=== PATIENT | female | born 1995 | race African-American/Black ===

== ENCOUNTER → 2016-07-20 | Outpatient (REF) | payer OTHER | LOC: M SFHCWAGY 15:30 | PROVIDERS: ATTEND Nurse Practitioner Family | DX: Z12.4 Encounter for screening for malignant neoplasm of cervix (principal); A59.09 Other urogenital trichomoniasis ==

== ENCOUNTER → 2017-01-05 | Outpatient (REF) | payer OTHER | LOC: M SFHCWAGY 10:58 | PROVIDERS: ATTEND Family Medicine | DX: Z11.3 Encounter for screening for infections with a predominantly sexual mode of transmission (principal) ==

== ENCOUNTER 2017-06-04 02:52 | Emergency (ER) | payer OTHER ==
[~2017-06-04] VITALS: Ht 165.1 cm; Wt 88.6 kg
[2017-06-04 02:52] VITALS: BP 137/76
[2017-06-04] MEDS ORDERED: CLEO300C2 PO (03:53)
[2017-06-04] MEDS ORDERED: NORCOTAB PO (03:53)
[2017-06-04] MEDS ORDERED: NAPR500T PO (03:53)
[2017-06-04] MEDS ORDERED: NAPROXEN 250 MG TAB PO ONE (04:00)
[2017-06-04] MEDS ORDERED: CLINDAMYCIN 150 MG CAP PO ONE (04:00)
[2017-06-04] MEDS ORDERED: NORCO 5/325MG TABLET (BULK FOR ED) PO ONE (04:00)
== END 2017-06-04 04:23 | disposition home or self-care (01) ==
LOC: M ED 02:52
DX: S02.5XXA Fracture of tooth (traumatic), initial encounter for closed fracture (principal); X58.XXXA Exposure to other specified factors, initial encounter; Y92.89 Other specified places as the place of occurrence of the external cause; Y93.89 Activity, other specified; Y99.8 Other external cause status

== ENCOUNTER 2017-07-02 18:36 | Emergency (ER) | payer OTHER ==
[2017-07-02] MEDS: PENICILLIN V POTASSIUM 500 MG TAB PO (20:30)
[2017-07-02] MEDS: NAPROXEN 250 MG TAB PO (20:30)
== END 2017-07-02 20:39 | disposition home or self-care (01) ==
LOC: M ED 18:36
DX: J02.9 Acute pharyngitis, unspecified (principal); Z79.2 Long term (current) use of antibiotics; Z79.899 Other long term (current) drug therapy
CPT/HCPCS: 99282

== ENCOUNTER 2017-09-20 08:39 | Emergency (ER) | payer OTHER | END 2017-09-20 09:49 | disposition home or self-care (01) | LOC: M ED 08:39 | DX: K02.9 Dental caries, unspecified (principal); K08.89 Other specified disorders of teeth and supporting structures; Z79.899 Other long term (current) drug therapy | CPT/HCPCS: 99282 ==

== ENCOUNTER → 2017-12-06 | Outpatient (REF) | payer OTHER | LOC: M SFHCWAGY 11:32 | DX: N90.89 Other specified noninflammatory disorders of vulva and perineum (principal) ==

== ENCOUNTER → 2018-06-17 | Outpatient (REF) | payer OTHER ==
[~2018-06-17] MED LIST: AUGM875T28 PO; BLIS1TAB2; CLEO300C2 PO; ERYTOIN8 OD; IBUP-1022 PO; IBUP80TA PO; LO LTAB PO; NAPR-50 PO; NORCOTAB PO; PENI500T PO
[2018-06-17 18:27] LABS: CHLAMYDIA DNA AMPLIFICATION NEGATIVE (NEGATIVE); GC DNA AMPLIFICATION NEGATIVE (NEGATIVE)
== END ==
LOC: M SFHCWAGY 15:50
PROVIDERS: ATTEND Nurse Practitioner Family
DX: Z12.4 Encounter for screening for malignant neoplasm of cervix (principal)

== ENCOUNTER 2018-06-21 17:23 | Emergency (ER) | payer OTHER ==
[~2018-06-21] VITALS: Ht 165.1 cm; Wt 95.5 kg
[~2018-06-21 17:23] MED LIST changes: -ERYTOIN8 OD; -IBUP80TA PO; -LO LTAB PO
[2018-06-21 17:24] VITALS: BP 142/85
[2018-06-21] MEDS ORDERED: LO LTAB PO (17:30)
[2018-06-21] MEDS ORDERED: AUGM875T28 PO (17:42)
[2018-06-21] MEDS ORDERED: IBUP80TA PO (17:42)
[2018-06-21] MEDS ORDERED: ERYTOIN8 OD (17:42)
[2018-06-21] MEDS ORDERED: AUGMENTIN 875 MG TAB PO ONE (17:45)
[2018-06-21] MEDS ORDERED: ERYTHROMYCIN OPHTH OINT OD ONE (17:45)
[2018-06-21] MEDS ORDERED: IBUPROFEN 800 MG TAB PO ONE (17:45)
== END 2018-06-21 18:13 | disposition home or self-care (01) ==
LOC: M ED 17:23
DX: S05.91XA Unspecified injury of right eye and orbit, initial encounter (principal); Y99.9 Unspecified external cause status; Y92.009 Unspecified place in unspecified non-institutional (private) residence as the place of occurrence of the external cause; H57.11 Ocular pain, right eye

== ENCOUNTER 2018-07-12 15:14 | Emergency (ER) | payer OTHER ==
[~2018-07-12] VITALS: Ht 165.1 cm; Wt 95.5 kg
[~2018-07-12 15:14] MED LIST changes: +ERYTOIN8 OD; +IBUP80TA PO; +LO LTAB PO
[2018-07-12] MEDS ORDERED: VALA1TAB2 PO (17:13)
[2018-07-12 17:22] VITALS: BP 132/79
== END 2018-07-12 17:34 | disposition home or self-care (01) ==
LOC: M ED 15:14
DX: B02.9 Zoster without complications (principal)

== ENCOUNTER 2018-12-21 08:13 | Emergency (ER) | payer OTHER, SELFPAY ==
[~2018-12-21] VITALS: Ht 165.1 cm; Wt 95.5 kg
[2018-12-21 08:13] VITALS: BP 137/84
[~2018-12-21 08:13] MED LIST changes: +HYDR-3715 PO; -NAPR-50 PO; +NAPR-837 PO; -NORCOTAB PO; +VALA1TAB2 PO
[2018-12-21] MEDS ORDERED: POLYSOL OD (09:10)
== END 2018-12-21 10:34 | disposition home or self-care (01) ==
LOC: M ED 08:13
DX: H10.31 Unspecified acute conjunctivitis, right eye (principal)

== ENCOUNTER 2019-01-06 17:58 | Emergency (ER) | payer OTHER, SELFPAY ==
[~2019-01-06] VITALS: Ht 165.1 cm; Wt 95.5 kg
[~2019-01-06 17:58] MED LIST changes: +POLYSOL OD
[2019-01-06 20:01] VITALS: BP 134/89
[2019-01-06] MEDS ORDERED: AMOX500C PO (21:07)
[2019-01-06] MEDS ORDERED: AMOXICILLIN 500 MG CAP PO ONE (21:15)
[2019-01-06] MEDS ORDERED: NORCO, ANEXSIA 5/325MG TABLET (HYDROcodone/ACETAMINOPHEN) PO ONE (21:15)
== END 2019-01-06 21:21 | disposition home or self-care (01) ==
LOC: M ED 17:58
DX: K02.9 Dental caries, unspecified (principal); H92.01 Otalgia, right ear; Z79.3 Long term (current) use of hormonal contraceptives

== ENCOUNTER → 2019-10-17 | Outpatient (REF) | payer OTHER ==
[~2019-10-17] MED LIST changes: +AFRI0.058; +AMOX500C PO; +BENZ200C70 PO; -VALA1TAB2 PO; +VALA1TAB5 PO; +VALA500T5 PO; +[UNRECOGNIZED DRUG - CODE]
[2019-10-17 21:42] LABS: CHLAMYDIA DNA AMPLIFICATION NEGATIVE (NEGATIVE); GC DNA AMPLIFICATION NEGATIVE (NEGATIVE)
== END ==
LOC: M SFHCWAGY 16:45
PROVIDERS: ATTEND Nurse Practitioner Family
DX: Z12.4 Encounter for screening for malignant neoplasm of cervix (principal); Z11.3 Encounter for screening for infections with a predominantly sexual mode of transmission

== ENCOUNTER 2020-01-19 22:32 | Emergency (ER) | payer OTHER ==
[2020-01-20] MEDS ORDERED: diphenhydrAMINE 25MG CAP ONE (00:57)
[2020-01-20] MEDS ORDERED: AUGMENTIN 875 MG TAB ONE (00:57)
== END 2020-01-20 01:00 | disposition home or self-care (01) ==
LOC: M ED 22:32
DX: L03.116 Cellulitis of left lower limb (principal); Z79.3 Long term (current) use of hormonal contraceptives

== ENCOUNTER → 2020-03-01 | Outpatient (REF) | payer OTHER ==
[2020-03-01 15:00] LABS: CHLAMYDIA DNA AMPLIFICATION NEGATIVE (NEGATIVE); GC DNA AMPLIFICATION NEGATIVE (NEGATIVE)
== END ==
LOC: M SFHCWAGY 11:48
PROVIDERS: ATTEND Nurse Practitioner Women's Health
DX: Z11.3 Encounter for screening for infections with a predominantly sexual mode of transmission (principal); N72 Inflammatory disease of cervix uteri

== ENCOUNTER → 2022-07-02 | Outpatient (REF) | payer BC ==
[~2022-07-02] MED LIST changes: -AFRI0.058; +OXYM15SP2
[2022-07-02 16:40] LABS: GC DNA AMPLIFICATION NEGATIVE (NEGATIVE)
== END ==
LOC: M PLALAB 08:13
PROVIDERS: ATTEND Advanced Practice Midwife
DX: Z12.4 Encounter for screening for malignant neoplasm of cervix (principal)

== ENCOUNTER → 2023-07-23 | Outpatient (REF) | payer BC ==
[~2023-07-23] MED LIST changes: +AMOX875T PO; +IBUP200T46 PO; +JUNE1TAB
== END ==
LOC: M PLALAB 14:28
PROVIDERS: ATTEND Advanced Practice Midwife
DX: Z12.4 Encounter for screening for malignant neoplasm of cervix (principal); Z11.3 Encounter for screening for infections with a predominantly sexual mode of transmission; Z53.9 Procedure and treatment not carried out, unspecified reason

== ENCOUNTER 2023-07-29 08:53 | Emergency (ER) | payer BC ==
[~2023-07-29] VITALS: Ht 165.1 cm; Wt 100.6 kg
[~2023-07-29 08:53] MED LIST changes: -AMOX875T PO; -IBUP200T46 PO; -JUNE1TAB
[2023-07-29] MEDS ORDERED: IBUP200T46 PO (09:35)
[2023-07-29] MEDS ORDERED: JUNE1TAB (09:35)
[2023-07-29] MEDS: BENZOCAINE 20% GEL 9GM TUBE (ANBESOL MAX STRENGTH) TOP ONE (10:25)
[2023-07-29] MEDS: ACETAMINOPHEN 500 MG TAB PO ONE (10:25)
[2023-07-29] MEDS ORDERED: AMOX875T PO (11:33)
[2023-07-29 11:59] VITALS: BP 158/92
[2023-07-29 12:05] VITALS: TEMP 98.1; O2SAT 99
== END 2023-07-29 12:13 | disposition home or self-care (01) ==
LOC: M ED 08:53
DX: K02.9 Dental caries, unspecified (principal); Z79.899 Other long term (current) drug therapy; Z79.2 Long term (current) use of antibiotics; Z79.1 Long term (current) use of non-steroidal anti-inflammatories (NSAID)

== ENCOUNTER → 2023-12-17 | Outpatient (REF) | payer BC ==
[~2023-12-17] MED LIST changes: +AMOX875T PO; +IBUP200T46 PO; +JUNE1TAB
[2023-12-17 13:34] LABS: Trichomonas vaginalis (AMP) NOT DETECTED (NEGATIVE)
[2023-12-17 13:58] LABS: GC DNA AMPLIFICATION NEGATIVE (NEGATIVE)
[2023-12-17 17:31] LABS: ALBUMIN 3.3 G/DL (3.2-5.2); ALKALINE PHOSPHATASE 87 U/L (46-116); ALT/SGPT 19 U/L (7.0-40); AST/SGOT 9 U/L (<34); BILIRUBIN,TOTAL 0.2 MG/DL (0.3-1.2); BLOOD UREA NITROGEN 13 MG/DL (9-23); CARBON DIOXIDE LEVEL 27 MMOL/L (20-31); CHLORIDE LEVEL 109 MMOL/L (98-107); CHOLESTEROL LEVEL 137 MG/DL (<200); CHOLESTEROL RISK RATIO 2.47 (<5); CREATININE FOR GFR 0.82 MG/DL (0.55-1.30); GLOMERULAR FILTRATION RATE > 60.0 (>60); GLUCOSE, FASTING 84 MG/DL (60-100); HDL CHOLESTEROL 55.4 MG/DL (>40); LDL CHOLESTEROL 65.2 MG/DL (<100); NON-HDL-C 81.6 MG/DL; POTASSIUM SERUM 3.9 MMOL/L (3.5-5.1); SODIUM LEVEL 142 MMOL/L (136-145); TOTAL PROTEIN 6.8 G/DL (5.7-8.2); TRIGLYCERIDES LEVEL 82 MG/DL (<150)
[2023-12-17 17:32] LABS: TOTAL 25(OH) VITAMIN D 25.7 NG/ML (20.0-100.0)
[2023-12-17 17:33] LABS: THYROID STIMULATING HORMONE 2.166 uIU/ML (0.55-4.78)
[2023-12-17 17:51] LABS: HEMOGLOBIN A1c 5.2 % (4.0-6.0)
[2023-12-17 17:53] LABS: BASO # 0.1 10^3/uL (0.0-0.2); BASO % 0.6 % (0.0-1.0); EOS # 0.1 10^3/uL (0.0-0.5); EOS % 0.8 % (0.0-3.0); HEMATOCRIT 38.3 % (36.0-47.0); HEMOGLOBIN 12.5 g/dl (12.0-15.5); LYMPH # 1.7 10^3/uL (1.5-5.0); MEAN CORPUSCULAR HEMOGLOBIN 26.2 pg (27.0-33.0); MEAN CORPUSCULAR HGB CONC 32.6 g/dl (32.0-36.5); MEAN CORPUSCULAR VOLUME 80.3 fl (80.0-96.0); MONO # 0.5 10^3/uL (0.0-0.8); MONO % 5.8 % (2.0-8.0); NEUTROPHILS # 6.3 10^3/uL (1.5-8.5); NEUTROPHILS % 72.6 % (36.0-66.0); PLATELET COUNT, AUTOMATED 286 10^3/uL (150-450); RED BLOOD COUNT 4.77 10^6/uL (4.00-5.40); WHITE BLOOD COUNT 8.7 10^3/uL (4.0-10.0)
[2023-12-17 18:02] LABS: HIV 1&2 SCREEN NEGATIVE (NEGATIVE)
[2023-12-17 18:09] LABS: HEPATITIS C VIRUS ABY INDEX < 0.02 INDEX (<0.8)
== END ==
LOC: M LAB REF 11:58
PROVIDERS: ATTEND Nurse Practitioner Family
DX: Z11.9 Encounter for screening for infectious and parasitic diseases, unspecified (principal); E66.3 Overweight; E55.9 Vitamin D deficiency, unspecified; R53.83 Other fatigue

== ENCOUNTER 2024-01-03 23:47 | Emergency (ER) | payer BC ==
[~2024-01-03] VITALS: Ht 165.1 cm; Wt 100.5 kg
[2024-01-04] MEDS ORDERED: KETO10TAB PO (01:44)
[2024-01-04] MEDS ORDERED: AMOX500C PO (01:44)
[2024-01-04] MEDS: KETOROLAC 60MG 2ML VIAL IM ONE (01:47)
[2024-01-04] MEDS: ACETAMINOPHEN 500 MG TAB PO ONE (01:48)
[2024-01-04 01:59] VITALS: BP 120/74; TEMP 97.8; O2SAT 98
== END 2024-01-04 02:03 | disposition home or self-care (01) ==
LOC: M ED 23:47
DX: K02.9 Dental caries, unspecified (principal); F12.10 Cannabis abuse, uncomplicated; F10.10 Alcohol abuse, uncomplicated; Z79.2 Long term (current) use of antibiotics; Z79.899 Other long term (current) drug therapy
CPT/HCPCS: 96372; 99283; J1885

== ENCOUNTER → 2024-07-21 | Outpatient (CLI) | payer BC ==
[~2024-07-21] MED LIST changes: +KETO10TAB PO
== END ==
LOC: M WHC 11:18
PROVIDERS: ATTEND Advanced Practice Midwife
DX: N92.0 Excessive and frequent menstruation with regular cycle (principal); R93.5 Abnormal findings on diagnostic imaging of other abdominal regions, including retroperitoneum

== ENCOUNTER → 2024-07-27 | Outpatient (CLI) | payer BC ==
[2024-07-27 14:09] LABS: Trichomonas vaginalis (AMP) NOT DETECTED (NEGATIVE)
[2024-07-27 14:32] LABS: HEMATOCRIT 39.9 % (36.0-47.0); HEMOGLOBIN 13.4 g/dl (12.0-15.5); MEAN CORPUSCULAR HEMOGLOBIN 27.1 pg (27.0-33.0); MEAN CORPUSCULAR HGB CONC 33.6 g/dl (32.0-36.5); MEAN CORPUSCULAR VOLUME 80.8 fl (80.0-96.0); PLATELET COUNT, AUTOMATED 267 10^3/uL (150-450); RED BLOOD COUNT 4.94 10^6/uL (4.00-5.40); WHITE BLOOD COUNT 5.5 10^3/uL (4.0-10.0)
[2024-07-27 14:33] LABS: GC DNA AMPLIFICATION NEGATIVE (NEGATIVE)
[2024-07-27 15:02] LABS: FREE T4 1.16 NG/DL (0.89-1.76)
[2024-07-27 15:03] LABS: THYROID STIMULATING HORMONE 1.783 uIU/ML (0.55-4.78)
[2024-07-27 15:14] LABS: HCG, SERUM QUALITATIVE NEGATIVE (NEGATIVE)
== END ==
LOC: M PLALAB 11:34
PROVIDERS: ATTEND Advanced Practice Midwife
DX: Z01.419 Encounter for gynecological examination (general) (routine) without abnormal findings (principal)

== ENCOUNTER → 2024-10-18 | Outpatient (REF) | payer BC | LOC: M PLALAB 15:49 | PROVIDERS: ATTEND Obstetrics & Gynecology | DX: N93.9 Abnormal uterine and vaginal bleeding, unspecified (principal) ==

== ENCOUNTER 2025-04-18 07:52 | Emergency (ER) | payer BC ==
[~2025-04-18] VITALS: Ht 165.1 cm; Wt 110.7 kg
[~2025-04-18 07:52] MED LIST changes: -IBUP-1022 PO; +IBUP600T42 PO; -JUNE1TAB; +JUNE1TAB PO
[2025-04-18] MEDS ORDERED: VALT500T PO (08:24)
[2025-04-18] MEDS ORDERED: AMOX500C PO (10:12)
[2025-04-18 10:24] VITALS: BP 144/74; TEMP 97.5; O2SAT 98
== END 2025-04-18 10:24 | disposition home or self-care (01) ==
LOC: M ED 07:52
DX: J02.0 Streptococcal pharyngitis (principal); Z79.2 Long term (current) use of antibiotics

== ENCOUNTER → 2025-05-23 | Outpatient (REF) | payer BC ==
[~2025-05-23] MED LIST changes: +VALT500T PO
[2025-05-23 18:02] LABS: Trichomonas vaginalis (AMP) NOT DETECTED (NEGATIVE)
[2025-05-23 18:26] LABS: GC DNA AMPLIFICATION NEGATIVE (NEGATIVE)
== END ==
LOC: M SFHCWAGY 15:47
PROVIDERS: ATTEND Nurse Practitioner Family
DX: Z11.3 Encounter for screening for infections with a predominantly sexual mode of transmission (principal)

== ENCOUNTER 2025-06-06 07:40 | Emergency (ER) | payer BC ==
[~2025-06-06] VITALS: Ht 165.1 cm; Wt 110.1 kg
[2025-06-06 09:31] VITALS: BP 158/97; TEMP 97; O2SAT 98
== END 2025-06-06 09:41 | disposition home or self-care (01) ==
LOC: M ED 07:40
DX: R05.9 Cough, unspecified (principal); B34.9 Viral infection, unspecified; Z79.2 Long term (current) use of antibiotics